=== PATIENT | male | born 1975 | race Caucasian/White ===

== ENCOUNTER 2018-04-28 16:09 | Emergency (ER) | payer OTHER ==
[2018-04-28 16:30] VITALS: BP 140/80; PULSE 95; TEMP 98.8; BMI 28.9
--- NOTE | 2018-04-28 16:39 | PDOC ---
Rapid Medical Evaluation Chief Complaint: Head/Neck problem Time Seen by Provider: 04/28/18 16:36 Medical Evaluation: Allergies Allergy/AdvReac Type Severity Reaction Status Date / Time No Known Allergies Allergy Verified 08/21/12 09:43 Vital Signs Temp Pulse Resp BP Pulse Ox 98.8 F 95 H 18 140/80 95 04/28/18 16:28 04/28/18 16:28 04/28/18 16:28 04/28/18 16:28 04/28/18 16:28 04/28/18 16:36 complain: Patient present with complains of left sided neck pain after turning neck this AM. Denies trauma or injury to neck. report taking muscle relaxer prior to ED visit exam: mild tenderness to left paracervical muscle of left side of neck. FROM of neck order: none f/u patient will proceed to ED for further evaluation Discharge Disposition - Diagnosis Neck strain Qualifiers: Encounter type: initial encounter Qualified Code(s): S16.1XXA - Strain of muscle, fascia and tendon at neck level, initial encounter - Referrals - Patient Instructions - Post Discharge Activity
--- NOTE | 2018-04-28 17:16 | PDOC ---
History of Present Illness - General Chief Complaint: Head/Neck problem Stated Complaint: NECK PAIN Time Seen by Provider: 04/28/18 16:36 History Source: Patient Exam Limitations: No Limitations - History of Present Illness Initial Comments: 04/28/18 17:13 pt reached behind him this AM while on the toilet and pulled his neck. 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 neg arm pain or numbness. Severity: mild Past History - Past Medical History Allergies/Adverse Reactions: Allergies Allergy/AdvReac Type Severity Reaction Status Date / Time No Known Allergies Allergy Verified 04/28/18 17:05 Home Medications: Ambulatory Orders Aspirin Coated [Ecotrin] 325 mg PO DAILY #0 tablet. 08/23/12 Atorvastatin Ca [Lipitor] 10 mg PO HS #0 tablet 08/23/12 Nebivolol HCl [Bystolic] 10 mg PO DAILY #0 08/23/12 hydrALAZINE HCL [Apresoline -] 50 mg PO BID #0 tablet 08/23/12 Cyclobenzaprine HCl [Flexeril -] 10 mg PO TID #21 tablet 04/28/18 COPD: No HTN: Yes - Suicide/Smoking/Psychosocial Hx Smoking Status: No Smoking History: Never smoked Have you smoked in the past 12 months: Yes Number of Cigarettes Smoked Daily: 0 If you are a former smoker, when did you quit?: 6 mos. ago Information on smoking cessation initiated: No 'Breaking Loose' booklet given: 08/21/12 Hx Alcohol Use: No Drug/Substance Use Hx: No Substance Use Type: None Hx Substance Use Treatment: No *Physical Exam - Vital Signs Last Vital Signs Temp Pulse Resp BP Pulse Ox 98.8 F 95 H 18 140/80 95 04/28/18 16:28 04/28/18 16:28 04/28/18 16:28 04/28/18 16:28 04/28/18 16:28 - Physical Exam General Appearance: Yes: Nourished, Appropriately Dressed HEENT: positive: EOMI, NIKKI Neck: positive: Supple, Tender lateral (left lateral muscle spasm to the left side neck neg midline tenderness ) Respiratory/Chest: positive: Lungs Clear, Normal Breath Sounds Medical Decision Making - Medical Decision Making 04/28/18 17:22 cc: left side neck stiffness and pain worse during the day will give ibuprofen and flexeril warm compresses *DC/Admit/Observation/Transfer Diagnosis at time of Disposition: Neck strain Qualifiers: Encounter type: initial encounter Qualified Code(s): S16.1XXA - Strain of muscle, fascia and tendon at neck level, initial encounter - Discharge Dispostion Disposition: HOME Condition at time of disposition: Good - Prescriptions Prescriptions: Cyclobenzaprine HCl [Flexeril -] 10 mg PO TID #21 tablet - Referrals Referrals: Gordo Jenkins MD [Primary Care Provider] - - Patient Instructions Additional Instructions: apply warm compresses to the left side of the neck take ibuprofen as directed every 8hrs take the flexeril as directed for muscle spasm follow with your doctor for any worsening symptoms - Post Discharge Activity
== END 2018-04-28 17:27 | disposition home or self-care (01) ==
LOC: JERFT 16:09
DX: S16.1XXA Strain of muscle, fascia and tendon at neck level, initial encounter (principal); X58.XXXA Exposure to other specified factors, initial encounter; Y93.89 Activity, other specified; Y92.9 Unspecified place or not applicable; I10 Essential (primary) hypertension; Z87.891 Personal history of nicotine dependence
CPT/HCPCS: 99281-25

== ENCOUNTER 2021-01-22 13:37 | Emergency (ER) | payer OTHER ==
[2021-01-22 13:51] VITALS: TEMP 98.4; BMI 24.4
[2021-01-22] MEDS ORDERED: SODIUM CHLORIDE 1,000 ML IV STA (14:24)
[2021-01-22 15:38] LABS: BASO % 0.7 % (0-2.0); EOS % 1.7 % (0-4.5); HEMATOCRIT 52.4 % (35.4-49); HEMOGLOBIN 17.3 GM/dL (11.7-16.9); LYMPH % 14.5 % (8-40); MCH 29.1 pg (25.7-33.7); MEAN CELL VOLUME 88.2 fl (80-96); MEAN PLT VOLUME 7.8 fl (7.5-11.1); MONO % 12.9 % (3.8-10.2); NEUT % 70.2 % (42.8-82.8); PLATELET COUNT 245 K/MM3 (134-434); RBC 5.94 M/mm3 (4.00-5.60); RDW 13.5 % (11.9-15.9); WHITE BLOOD COUNT 5.8 K/mm3 (4.0-10.0)
[2021-01-22 15:42] LABS: URINE APPEARANCE CLEAR; URINE BILIRUBIN NEGATIVE (NEGATIVE); URINE COLOR YELLOW; URINE GLUCOSE (UA) NEGATIVE (NEGATIVE); URINE KETONE NEGATIVE (NEGATIVE); URINE LEUK ESTERASE NEGATIVE (NEGATIVE); URINE NITRITE NEGATIVE (NEGATIVE); URINE PROTEIN NEGATIVE (NEGATIVE); URINE UROBILINOGEN 0.2 mg/dL (0.2-1.0)
[2021-01-22 16:03] LABS: CHLORIDE 107 mmol/L (98-107); SODIUM 141 mmol/L (136-145)
[2021-01-22 16:05] LABS: CALCIUM 9.1 mg/dL (8.5-10.1)
[2021-01-22 16:06] LABS: ALBUMIN 4.2 g/dl (3.4-5.0); ANION GAP 6 MMOL/L (8-16); BLOOD UREA NITROGEN 19.4 mg/dL (7-18); CO2 28 mmol/L (21-32); GLUCOSE,RANDOM 95 mg/dL (74-106); MAGNESIUM 2.2 mg/dL (1.8-2.4)
[2021-01-22 16:09] LABS: CREATININE 1.2 mg/dL (0.55-1.3); SGOT/AST 16 U/L (15-37); SGPT/ALT 28 U/L (13-61)
[2021-01-22 16:11] LABS: BILIRUBIN,TOTAL 0.5 mg/dL (0.2-1); TOT PROT 7.8 g/dl (6.4-8.2)
[2021-01-22 16:12] LABS: ALK PHOS 72 U/L (45-117)
[2021-01-22 16:51] VITALS: BP 159/99; PULSE 90
== END 2021-01-22 16:51 | disposition home or self-care (01) ==
LOC: JER 13:37
PROC: 3E0337Z Introduction of Electrolytic and Water Balance Substance into Peripheral Vein, Percutaneous Approach (ICD-10-PCS; principal; 2021-01-22)
DX: R00.0 Tachycardia, unspecified (principal)
CPT/HCPCS: 36415; 71046-TC-FY; 80053; 81003; 82550; 82553; 83735; 84443; 84484; 85025; 93005; 93010; 99285-25